=== PATIENT | female | born 1945 | race Caucasian/White ===

== ENCOUNTER 2017-11-13 17:04 | Emergency (ER) | payer MEDICARE ==
[2017-09-03 12:07] VITALS: Wt 65.8 kg
[~2017-11-13 17:04] MED LIST: BEN5 PO; CYCL10TA29 PO; DIA5 PO; KET10 PO; LACT1CAP6 PO; LOR5/325 PO; MULT-1379 PO; MULT-885 PO; NATURAL THYROID MED; OLAN10TA25 PO; OMEP40CA48 PO; PER PO; SIMV-54 PO; THYR60TA25 PO; TRAZ-156 PO; [UNRECOGNIZED DRUG - CODE]
--- NOTE | 2017-11-13 17:12 | ER Report ---
History and Physical Time Seen By MD: 17:11 HPI/ROS CHIEF COMPLAINT: Shortness of breath HISTORY OF PRESENT ILLNESS: 72-year-old female patient presents to emergency room with complaint of shortness of breath. Patient states that she has been having this for the past 3 days. Patient states that she's had this horrible cough for the last several days. She states there is nothing seems to make the cough better. She states this worse especially at nighttime. She denies having any fevers but states she has had some chills. She states she's taken some over- the-counter cough syrup for this which seemed to make things worse. REVIEW OF SYSTEMS: Respiratory: As noted above. Cardiovascular: No chest pain, no palpitations. Gastrointestinal: No vomiting, no abdominal pain. Musculoskeletal: No back pain. Allergies: Coded Allergies: Penicillins (Verified Allergy, Severe, ANAPHYLAXIS, 09/02/17) cyclobenzaprine (Verified Adverse Reaction, Severe, MENTAL STATUS CHANGES , 09/07/17) Uncoded Allergies: Seasonal allergies (Allergy, Unknown, 04/06/16) Home Meds Active Scripts Prednisone (PREDNISONE) 20 Mg Tablet, 20 MG PO BID, #10 TAB Prov:SHRUTI TOLBERT 11/13/17 Azithromycin 250 Mg Tab (AZITHROMYCIN 250 MG TAB) 250 Mg Tablet, 1 TAB PO QDAY, #4 TAB Prov:SHRUTI TOLBERT FUND DIRECTOR 11/13/17 Reported Medications Trazodone Hcl (TRAZODONE HCL) 50 Mg Tablet, 50 MG PO QHS Y for INSOMNIA TAKE ABOUT AN HOUR BEFORE YOU PLAN TO GO TO SLEEP NEEDED FOR INSOMNIA. 09/08/17 Multivits,Th W-Fe,Other Min (THERA-M) 1 Each Tablet, 1 EACH PO QDAY 09/08/17 Thyroid,Pork (ARMOUR THYROID) Unknown Strength Tablet, 60 MG PO QAM 09/02/17 Cyanocobalamin (Vitamin B-12) (B-12) Unknown Strength Drops, 3000 MCG TAKE EVERY OTHER DAY. 04/06/16 Lactobacillus Combination No.4 (PROBIOTIC) Unknown Strength Capsule, 1 EACH PO, CAPSULE 04/06/16 Past Medical/Surgical History Patient has a past medical history of migraines, Legionnaires' disease, pneumonia, cholecystitis, UTI, arthritis, back pain, hypothyroidism, alcohol use , depression, PTSD. Patient has a surgical history of eye surgery, back surgery, knee surgery, hand surgery. Patient has a family medical history of CAD. Hx Smoking: No Smoking Status: Never Smoker Exposure to Second Hand Smoke?: Yes Hx Substance Use Disorder: No Hx Alcohol Use: Yes (one on holidays) Constitutional Vital Sign - Last 24 Hours 11/13/17 11/13/17 11/13/17 11/13/17 17:05 17:12 17:14 17:19 Temp 98.4 Pulse 78 84 Resp 16 B/P (MAP) 168/75 195/95 (128) 162/84 (110) Pulse Ox 95 91 O2 Delivery Room Air 11/13/17 11/13/17 11/13/17 11/13/17 17:34 17:49 18:19 18:34 Pulse 83 86 80 78 Pulse Ox 91 91 86 88 11/13/17 11/13/17 18:49 18:53 Pulse ??? 85 Resp 16 B/P (MAP) 140/84 (102) 138/88 (105) Pulse Ox 88 90 O2 Delivery Room Air Physical Exam General Appearance: The patient is alert, has no immediate need for airway protection and no current signs of toxicity. Eyes: Pupils equal and round no injection. Respiratory: Chest is tender to palpation, lungs are diminished to auscultation. Cardiac: regular rate and rhythm Gastrointestinal: Abdomen is soft and non tender, no masses, bowel sounds normal. Musculoskeletal: Neck: Neck is supple and non tender. Extremities have full range of motion and are non tender. Skin: No rashes or lesions. DIFFERENTIAL DIAGNOSIS: After history and physical exam differential diagnosis was considered for shortness of breath including but not limited to pulmonary infectious process, COPD, asthma, pulmonary embolus and congestive heart failure. Medical Decision Making Data Points Result Diagram: 11/13/17 1748 11/13/17 1748 Laboratory Hematology Test 11/13/17 17:08 11/13/17 17:48 Urine Color Yellow Urine Clarity Clear Urine pH 5.0 pH (4.8-9.5) Urine Specific [place] 1.018 Urine Protein Negative mg/dL (NEGATIVE) Urine Glucose (UA) Negative mg/dL (NEGATIVE) Urine Ketones 20 mg/dL (NEGATIVE) Urine Blood Negative (NEGATIVE) Urine Nitrite Negative (NEGATIVE) Urine Bilirubin Negative (NEGATIVE) Urine Urobilinogen 4.0 mg/dL (0.2-1.9) Urine Leukocyte Esterase Moderate (NEGATIVE) Urine RBC 1 /HPF (0-2/HPF) Urine WBC 5 /HPF (0-5/HPF) Urine Squamous Epithelial Cells Many /LPF (</=FEW) Urine Bacteria Negative /HPF (NONE-FEW) Urine Mucus Few /HPF (NONE-FEW) Red Blood Count 4.70 M/uL (4.17-5.56) Mean Corpuscular Volume 78.2 fL (80.0-96.0) Mean Corpuscular Hemoglobin 26.8 pg (26.0-33.0) Mean Corpuscular Hemoglobin Concent 34.3 g/dL (32.0-36.0) Red Cell Distribution Width 15.3 % (11.5-14.5) Mean Platelet Volume 8.0 fL (7.2-11.1) Neutrophils (%) (Auto) 66.3 % (39.4-72.5) Lymphocytes (%) (Auto) 16.1 % (17.6-49.6) Monocytes (%) (Auto) 14.7 % (4.1-12.4) Eosinophils (%) (Auto) 2.4 % (0.4-6.7) Basophils (%) (Auto) 0.5 % (0.3-1.4) Nucleated RBC Relative Count (auto) 0.1 /100WBC Neutrophils # (Auto) 1.9 K/uL (2.0-7.4) Lymphocytes # (Auto) 0.5 K/uL (1.3-3.6) Monocytes # (Auto) 0.4 K/uL (0.3-1.0) Eosinophils # (Auto) 0.1 K/uL (0.0-0.5) Basophils # (Auto) 0.0 K/uL (0.0-0.1) Nucleated RBC Absolute Count (auto) 0.00 K/uL Sodium Level 137 mmol/L (137-145) Potassium Level 3.9 mmol/L (3.5-5.0) Chloride Level 104 mmol/L (98-107) Carbon Dioxide Level 22 mmol/L (22-31) Blood Urea Nitrogen 14 mg/dl (7-18) Creatinine 0.80 mg/dl (0.52-1.04) Glomerular Filtration Rate Calc > 60.0 Random Glucose 94 mg/dl (75-110) Calcium Level 9.0 mg/dl (8.4-10.2) Total Bilirubin 5.1 mg/dl (0.2-1.3) Aspartate Amino Transf (AST/SGOT) 39 U/L (0-35) Alanine Aminotransferase (ALT/SGPT) 34 U/L (0-56) Alkaline Phosphatase 99 U/L (0-126) Troponin I < 0.012 ng/ml B-Type Natriuretic Peptide 33 pg/ml (0-100) Total Protein 6.3 gm/dl (6.3-8.2) Albumin 3.7 g/dl (3.5-5.0) Influenza Type A Antigen Negative (NEGATIVE) Influenza Type B Antigen Negative (NEGATIVE) Chemistry Test 11/13/17 17:08 11/13/17 17:48 Urine Color Yellow Urine Clarity Clear Urine pH 5.0 pH (4.8-9.5) Urine Specific [place] 1.018 Urine Protein Negative mg/dL (NEGATIVE) Urine Glucose (UA) Negative mg/dL (NEGATIVE) Urine Ketones 20 mg/dL (NEGATIVE) Urine Blood Negative (NEGATIVE) Urine Nitrite Negative (NEGATIVE) Urine Bilirubin Negative (NEGATIVE) Urine Urobilinogen 4.0 mg/dL (0.2-1.9) Urine Leukocyte Esterase Moderate (NEGATIVE) Urine RBC 1 /HPF (0-2/HPF) Urine WBC 5 /HPF (0-5/HPF) Urine Squamous Epithelial Cells Many /LPF (</=FEW) Urine Bacteria Negative /HPF (NONE-FEW) Urine Mucus Few /HPF (NONE-FEW) White Blood Count 2.8 k/uL (4.5-11.0) Red Blood Count 4.70 M/uL (4.17-5.56) Hemoglobin 12.6 g/dL (12.0-16.0) Hematocrit 36.8 % (34.0-47.0) Mean Corpuscular Volume 78.2 fL (80.0-96.0) Mean Corpuscular Hemoglobin 26.8 pg (26.0-33.0) Mean Corpuscular Hemoglobin Concent 34.3 g/dL (32.0-36.0) Red Cell Distribution Width 15.3 % (11.5-14.5) Platelet Count 107 K/uL (150-450) Mean Platelet Volume 8.0 fL (7.2-11.1) Neutrophils (%) (Auto) 66.3 % (39.4-72.5) Lymphocytes (%) (Auto) 16.1 % (17.6-49.6) Monocytes (%) (Auto) 14.7 % (4.1-12.4) Eosinophils (%) (Auto) 2.4 % (0.4-6.7) Basophils (%) (Auto) 0.5 % (0.3-1.4) Nucleated RBC Relative Count (auto) 0.1 /100WBC Neutrophils # (Auto) 1.9 K/uL (2.0-7.4) Lymphocytes # (Auto) 0.5 K/uL (1.3-3.6) Monocytes # (Auto) 0.4 K/uL (0.3-1.0) Eosinophils # (Auto) 0.1 K/uL (0.0-0.5) Basophils # (Auto) 0.0 K/uL (0.0-0.1) Nucleated RBC Absolute Count (auto) 0.00 K/uL Glomerular Filtration Rate Calc > 60.0 Calcium Level 9.0 mg/dl (8.4-10.2) Total Bilirubin 5.1 mg/dl (0.2-1.3) Aspartate Amino Transf (AST/SGOT) 39 U/L (0-35) Alanine Aminotransferase (ALT/SGPT) 34 U/L (0-56) Alkaline Phosphatase 99 U/L (0-126) Troponin I < 0.012 ng/ml B-Type Natriuretic Peptide 33 pg/ml (0-100) Total Protein 6.3 gm/dl (6.3-8.2) Albumin 3.7 g/dl (3.5-5.0) Influenza Type A Antigen Negative (NEGATIVE) Influenza Type B Antigen Negative (NEGATIVE) Urinalysis Test 11/13/17 17:08 Urine Color Yellow Urine Clarity Clear Urine pH 5.0 pH (4.8-9.5) Urine Specific [place] 1.018 Urine Protein Negative mg/dL (NEGATIVE) Urine Glucose (UA) Negative mg/dL (NEGATIVE) Urine Ketones 20 mg/dL (NEGATIVE) Urine Blood Negative (NEGATIVE) Urine Nitrite Negative (NEGATIVE) Urine Bilirubin Negative (NEGATIVE) Urine Urobilinogen 4.0 mg/dL (0.2-1.9) Urine Leukocyte Esterase Moderate (NEGATIVE) Urine RBC 1 /HPF (0-2/HPF) Urine WBC 5 /HPF (0-5/HPF) Urine Squamous Epithelial Cells Many /LPF (</=FEW) Urine Bacteria Negative /HPF (NONE-FEW) Urine Mucus Few /HPF (NONE-FEW) EKG/Imaging EKG Interpretation 12 lead EKG: Rhythm: normal sinus rhythm with ventricular rate of 83 bpm Tebbetts: normal QRS: normal ST segments: normal Imaging 2 VIEWS CHEST INDICATION: Cough and respiratory distress. COMPARISON: 09/06/2017. FINDINGS: Cardiomediastinal silhouette and pulmonary vessels within normal limits. There is no focal infiltrate or lobar consolidation. There is no pneumothorax or pleural effusion. No nodule. Upper abdomen is unremarkable. No acute bony abnormality. IMPRESSION: 1. No acute cardiopulmonary process. Report Dictated By: Sravan Zapien at 11/13/2017 6:27 PM Report E-Signed By: Sravan Zapien at 11/13/2017 6:28 PM ED Course/Re-evaluation ED Course Patient was admitted to an exam room, history and physical obtained. Differential diagnoses were considered. On examination patient has diminished lung sounds. A CBC, CMP, chest x-ray, influenza, troponin, EKG were done. Patient did have a low white count, the remainder the labs were unremarkable. She had a negative influenza, negative troponin and negative EKG. Patient will be discharged home at this time. We will place her on azithromycin, due to placing her on prednisone. We'll also have her take an albuterol inhaler to help open up the airways. I discussed this with the patient who verbalized understanding and agreement. Decision to Disposition Date: Nov 13, 2017 Decision to Disposition Time: 18:47 Depart Departure Latest Vital Signs Vital Signs Date Time Temp Pulse Resp B/P (MAP) Pulse Ox O2 Delivery O2 Flow Rate FiO2 11/13/17 18:53 85 16 138/88 (105) 90 Room Air 11/13/17 17:05 98.4 Impression: Primary Impression: Bronchitis Condition: Improved Disposition: HOME OR SELF-CARE Referrals: BELINDA HATCH MD (PCP) New Scripts Prednisone (PREDNISONE) 20 Mg Tablet 20 MG PO BID, #10 TAB Prov: SHRUTI TOLBERT FUND DIRECTOR 11/13/17 Azithromycin 250 Mg Tab (AZITHROMYCIN 250 MG TAB) 250 Mg Tablet 1 TAB PO QDAY, #4 TAB Prov: SHRUTI TOLBERT 11/13/17 Patient Instructions: Acute Bronchitis (ED) Additional Instructions: Increase fluid intake. Get plenty of rest. Follow up with your primary care provider in the next week. Return to the ER if condition worsens. You may Take Tylenol or Ibuprofen as needed for fevers or pain. You may take Over the counter cough medication. SHRUTI TOLBERT Nov 13, 2017 17:12
--- NOTE | 2017-11-13 17:38 | EKG ---
FACILITY: [facility] PATIENT NAME: TIP DAVILA : [id number] MR: [id number] V: [id number] EXAM DATE: ORDERING PHYSICIAN: SHRUTI TOLBERT TECHNOLOGIST: Jerry Booth Reason : Blood Pressure : / mmHG Vent. Rate : 083 BPM Atrial Rate : 083 BPM P-R Int : 148 ms QRS Dur : 082 ms QT Int : 376 ms P-R-T Axes : 072 046 069 degrees QTc Int : 441 ms Sinus rhythm Possible left atrial enlargement Low voltage QRS Nonspecific T wave abnormality Abnormal ECG Confirmed by ALLISON VANG ([id number] on 11/14/2017 6:11:55 AM Referred By: Confirmed By:ALLISON VANG
[2017-11-13 17:56] LABS: PLATELET COUNT, AUTOMATED 107 K/uL (150-450)
--- NOTE | 2017-11-13 18:31 | RADIOLOGY IMAGING REPORT ---
FACILITY: [facility] [place] PATIENT NAME: Hanane Armando : 1945 MR: [id number] V: [id number] EXAM DATE: ORDERING PHYSICIAN: SHRUTI TOLBERT TECHNOLOGIST: Location: [facility] Patient: Hanane Armando : 1945 Visit/Account:[id number] Date of Sevice: 11/13/2017 2 VIEWS CHEST INDICATION: Cough and respiratory distress. COMPARISON: 09/06/2017. FINDINGS: Cardiomediastinal silhouette and pulmonary vessels within normal limits. There is no focal infiltrate or lobar consolidation. There is no pneumothorax or pleural effusion. No nodule. Upper abdomen is unremarkable. No acute bony abnormality. IMPRESSION: 1. No acute cardiopulmonary process. Report Dictated By: Sravan Zapien at 11/13/2017 6:27 PM Report E-Signed By: Sravan Zapien at 11/13/2017 6:28 PM WSN:[id number]
[2017-11-13] MEDS ORDERED: AZITHROMYCIN 250 MG TAB PO ONE (18:45)
[2017-11-13] MEDS ORDERED: ALBUTEROL SULFATE 90 MCG/ACT 8.5 GM HNH INH ONE (18:45)
[2017-11-13] MEDS ORDERED: PRED20TA6 PO (18:46)
[2017-11-13] MEDS ORDERED: AZIT-18 PO (18:46)
[2017-11-13 18:53] VITALS: BP 138/88
== END 2017-11-13 18:55 | disposition home or self-care (01) ==
LOC: ER 17:22
DX: J40 Bronchitis, not specified as acute or chronic (principal)
CPT/HCPCS: 71046; 81001; 83880; 84484; 85025; 87502; 93005; 99284; Q0144; 82040; 82247; 82310; 82374; 82435; 82565; 82947; 84075; 84132; 84155; 84295; 84450; 84460; 84520

== ENCOUNTER → 2017-12-30 | Outpatient (REF) | payer MEDICARE ==
[2017-09-03 12:07] VITALS: BMI 27.5
[~2017-12-30] MED LIST changes: +AZIT-18 PO; +PRED20TA6 PO
== END ==
LOC: ZZSTITCHES 19:40
PROVIDERS: ATTEND Physician Assistant
DX: N39.0 Urinary tract infection, site not specified (principal); R35.0 Frequency of micturition; R82.99 Other abnormal findings in urine
CPT/HCPCS: 87088

== ENCOUNTER 2018-02-10 11:15 | Outpatient (RCR) | payer MEDICARE ==
[2017-09-03 12:07] VITALS: BMI 27.5
--- NOTE | 2018-02-08 15:14 | PT INITIAL EVALUATION ---
MEDICAL DIAGNOSIS: R 53.1 Generalized weakness, M25.561, R medial knee pain, R29.898 Muscular TREATMENT DIAGNOSIS: Same DATE OF ONSET: 11/13/17 SUBJECTIVE: Hanane Armando presents to PT for weakness from bronchitis (November,) and what she says in a history of 3 UTI's in the last 3 to 5 months. She lives alone in an apartment and relates she needs to rest after the first flight of stairs before she can climb the second flight to her apartment. She' s napping daily due to fatigue and would like to be able to vacuum her entire apartment without having to rest. Pain location is R medial knee and described as ache. Pain scale is 3 on a ten point pain scale. Pain is worse with stairs and better with rest. REHAB PROBLEM LIST: Increased Pain Decreased Strength Decreased Endurance Decreased Function Decreased Mobility PREVIOUS MEDICAL HISTORY: Mental health issues, 1982 lumbar surgery, lumbar stenosis, R knee surgery. OCCUPATION: Retired OBJECTIVE: Posture: Mild R valgus knee, R calcaneus everted. ROM: LE's AROM WNL, R calcaneus everted ~5 degrees, L calcaneus in neutral position. Strength: LE's 4/5. Palpation: Tender R medial knee joint line Special Tests: Negative varus/valgus stress tests, meniscal loading R knee, mild pain with medial compartment loading. Mobility: Independent. Five times sit to welding production supervisor 18 seconds (mean is 10 seconds ), O2 93% on room air, HR 66. Gait: Increased R femoral IR beyond midstance. 6 minutes walk test 1106 feet ( mean for 72 y/o 1332 feet) a 17% impairment, O2 92-95% on room air, HR 83-93 BPM ASSESSMENT: Hanane Armando presents with reduced strength, conditioning and reduced stair climbing tolerance after illness. She's an excellent candidate to improve her overall strength and conditioning to achieve her goals. I encouraged her to purchase Superfeet to control femoral IR moment. Short Term Goals/Patient's Goals 4-6 weeks: Hanane climbs two flights of stairs without stopping, vacuums her entire apartment in one session, 5 times sit to welding production supervisor 10 seconds. PLAN: Patient to be seen for Strengthening/condition Stretching Gait Trg/Balance Trg Home Exercise Program 2x/Week for 6 Weeks Thank you for this referral. If you have any questions, comments, or concerns about this report or plan, please contact me at . [facility]
[~2018-02-10 11:15] MED LIST changes: +ALBU2.5V36 INH; +ALBU8.5H IH; +DICL100G39 TOP; +LISI5TAB25 PO; +SUPER C PO; +UBID50CA24 PO; +[UNRECOGNIZED DRUG - OTHER] PO; +[UNRECOGNIZED DRUG - OTHER] PO; +[UNRECOGNIZED DRUG - OTHER] PO; +[UNRECOGNIZED DRUG - OTHER] PO
--- NOTE | 2018-02-17 14:17 | PT PLAN OF CARE ---
Physician: Dr. Beata Azul Patient is being seen: twice Therapist: Emma Deluca, PT Medical Diagnosis: R 53.1 Generalized weakness, M25.561, R medial knee pain, R29.898 Muscular Treatment Diagnosis: Same Date of Onset: 11/13/17 Date of Initial Evaluation: 02/08/18 Date patient was last seen: 02/15/18 Number of treatments: 3 Number of cancellations/No shows: 0 INTERVENTIONS: Strengthening/condition Stretching Gait Trg/Balance Trg Home Exercise Program GOALS/PATIENT'S GOAL: 4-6 weeks: Not met: Hanane climbs two flights of stairs without stopping, vacuums her entire apartment in one session, 5 times sit to director labor standards 10 seconds. Patient Compliance: Excellent Prognosis: Excellent Reasons for discontinuing therapy: S: Hanane discharged herself from PT here as she felt I was unprofessional. She' s gone elsewhere for her PT. A/P: I don't know what I said or did to offend Hanane, and I apologize for whatever it was. I'll DC PT here. Thank you. AISHWARYA
== END 2018-02-10 18:00 | disposition home or self-care (01) ==
LOC: PT 11:15
PROVIDERS: ATTEND Family Medicine
DX: R53.1 Weakness (principal); M25.561 Pain in right knee; R29.898 Other symptoms and signs involving the musculoskeletal system; Z87.440 Personal history of urinary (tract) infections; M48.061 Spinal stenosis, lumbar region without neurogenic claudication

== ENCOUNTER → 2018-03-15 | Outpatient (CLI) | payer MEDICARE ==
[2017-09-03 12:07] VITALS: BMI 27.5
[~2018-03-15] MED LIST changes: -BEN5 PO; +BENZ0.5T19 PO; +CALC1TAB32 PO; +FLUT16SP19 NS
[2018-03-15 11:28] LABS: PLATELET COUNT, AUTOMATED 159 K/uL (150-450)
== END ==
LOC: LAB 11:22
PROVIDERS: ATTEND Family Medicine
DX: E03.9 Hypothyroidism, unspecified (principal); R94.6 Abnormal results of thyroid function studies
CPT/HCPCS: 36415; 82040; 82247; 82310; 82374; 82435; 82565; 82947; 84075; 84132; 84155; 84295; 84439; 84443; 84450; 84460; 84520; 85025

== ENCOUNTER 2019-03-28 09:34 | Emergency (ER) | payer MEDICARE ==
[2017-09-03 12:07] VITALS: BMI 27.5
--- NOTE | 2019-03-28 10:17 | RADIOLOGY IMAGING REPORT ---
[place] [facility] [place] Hanane Armando : 1945 MR: [id number] V: [id number] EXAM DATE: ORDERING PHYSICIAN: BRIAN VALERO TECHNOLOGIST: Location: [facility] [place] Patient: Hanane Armando : 1945 Visit/Account:[id number] Date of Sevice: 03/28/2019 CT of the osseous pelvis without contrast Indication: Fall. Right groin pain. Right pelvic pain. Comparison: None available. Technique: Axial CT images were obtained through the pelvis. Reformatted coronal and sagittal images were reviewed. One of the following dose optimization techniques was utilized in the performance of this exam: Autom ated exposure control; adjustment of the mA and/or kV according to the patient's size; or use of an i terative reconstruction technique. Specific details can be referenced in the facility's radiology C T exam operational policy. Findings: No acute fracture is identified. There is mild severity hip joint osteoarthritis. Degenerative changes are seen at the pubic symphysis which is appropriately aligned. There are mild changes of bilateral sacroiliac joint osteoarthritis. Degenerative disc disease involves the lumbar spine on the edge of the cukes-rd-upcl at the L5-S1 lev el. Central disc protrusion is seen with a disc osteophyte complex. With respect to the soft tissues, no focal hematoma is identified. No fluid collection. The pelvic mu sculature is symmetric from right to left. Within the pelvis, trace fluid is seen in the cul-de-sac. Scattered sigmoid colon diverticula are see n. Atherosclerotic calcifications involve the uterine vascularity. A round lesion is seen within the left vaginal wall near the vaginal fornix. This measures 10 mm in size and is likely a proteinaceous vaginal wall cyst. IMPRESSION: 1. No acute fracture deformity involving the bony pelvis, sacrum and proximal femora. 2. Mild bilateral hip joint osteoarthritis. 3. Degenerative disc disease at L5-S1 with a central disc protrusion. 4. Sigmoid colon diverticulosis. Report Dictated By: Robb Wade at 03/28/2019 10:05 AM Report E-Signed By: Robb Wade at 03/28/2019 10:13 AM WSN:[id number]
[2019-03-28 10:30] VITALS: BP 138/66
--- NOTE | 2019-03-28 10:33 | ER Report ---
History and Physical Time Seen By MD: 09:30 Hx. of Stated Complaint: PATIENT FELL EARLIER TODAY AND IS REPORTING RIGHT HIP PAIN HPI/ROS CHIEF COMPLAINT: Fell at about HISTORY OF PRESENT ILLNESS: 73-year-old female mechanical fall out of her bed onto her right hip no head or neck trauma loss of consciousness simple mechanical fall no symptoms prior to complaining of right hip and inguinal pain patient is no additional complaints REVIEW OF SYSTEMS: Respiratory: No cough, no dyspnea. Cardiovascular: No chest pain, no palpitations. Gastrointestinal: No vomiting, no abdominal pain. Musculoskeletal: Hip Anglo pain Remainder of the 14 system rev: Yes Allergies: Coded Allergies: Penicillins (Verified Allergy, Severe, ANAPHYLAXIS, 09/02/17) diclofenac (Verified Allergy, Unknown, Rash, 03/15/18) cyclobenzaprine (Verified Adverse Reaction, Severe, MENTAL STATUS CHANGES, 09/07/17) Uncoded Allergies: Seasonal allergies (Allergy, Unknown, 04/06/16) Home Meds No Active Prescriptions or Reported Meds Reviewed Nurses Notes: Yes Old Medical Records Reviewed: Yes Hx Smoking: No Smoking Status: Never Smoker Exposure to Second Hand Smoke?: Yes Hx Substance Use Disorder: No Hx Alcohol Use: Yes (one on holidays) Physical Exam General Appearance: The patient is alert, has no immediate need for airway protection and no current signs of toxicity. [ ] Eyes: Pupils equal and round no injection. Respiratory: Chest is non tender, lungs are clear to auscultation. Cardiac: regular rate and rhythm [ ] Gastrointestinal: Abdomen is soft and non tender, no masses, bowel sounds normal. Musculoskeletal: Right hip examination shows some pain with external and internal rotation neurovascular intact otherwise range of motion is normal Neck is supple and non tender. Skin: No rashes or lesions. [ ] DIFFERENTIAL DIAGNOSIS: After history and physical exam differential diagnosis was considered for right hip fracture versus contusion Medical Decision Making ED Course/Re-evaluation ED Course ED course medical decision raising 3-year-old female comes emergency Department today after mechanically falling out of her bed lamp right hip and right pelvis pain patient's CT scan shows no fractures of the pelvis or the hip or proximal femur joint patient became admitted before discharge diagnoses B contusion Decision to Disposition Date: March 28, 2019 Decision to Disposition Time: 10:32 Depart Departure Impression: Primary Impression: Contusion, hip Condition: Improved Disposition: HOME OR SELF-CARE Referrals: ARTHUR HANDLEY MD (PCP) 5 Days New Scripts No Active Prescriptions or Reported Meds Patient Instructions: Hip Contusion (ED) BRIAN VALERO MD March 28, 2019 10:33
[2019-03-28] MEDS ORDERED: APAP/HYDROCODONE 325/5 TAB PO ONE (10:40)
== END 2019-03-28 11:16 | disposition home or self-care (01) ==
LOC: ER 09:50 → CANBEDREQ 10:26 → ER 11:16
DX: S70.01XA Contusion of right hip, initial encounter (principal); W06.XXXA Fall from bed, initial encounter
CPT/HCPCS: 72192; 99284; A9270

== ENCOUNTER → 2019-03-28 | Outpatient (CLI) | payer MEDICARE ==
[2017-09-03 12:07] VITALS: BMI 27.5
[~2019-03-28] MED LIST changes: +LEVO25TA61 PO; +MIRT7.5T2 PO; +PRAZ1CAP26 PO; -TRAZ-156 PO; +TRAZ50TA34 PO
== END ==
LOC: AMB 09:03
PROVIDERS: ATTEND Nurse Practitioner
DX: M25.551 Pain in right hip (principal)
CPT/HCPCS: A0425; A0427